=== PATIENT | male | born 1990 | race Caucasian/White ===

== ENCOUNTER 2016-07-04 13:25 | Emergency (ER) | payer OTHER ==
[2016-07-04] MEDS ORDERED: Albuterol 2.5 MG/3 ML NEB.SOL* (0.083%) INH ONE (13:45)
--- NOTE | 2016-07-04 14:05 | UC ---
Respiratory Complaint HPI - HPI Summary HPI Summary: patient went for a run this morning and had an episode where he felt like he was drowning. had to stop running. He states he has had many episodes like this since starting to wrok outside in February. He says there is no reasoning behind it. does have a prescription for albuterol but doesn't use it. when asked about hx of anxiety he got very defensive. denies any fever, sinus congestion, states he has a consistent cough that is not productive, His thought processes is very tangential. - History of Current Complaint Chief Complaint: UCRespiratory Stated Complaint: CONGESTION,COUGH Time Seen by Provider: 07/04/16 13:31 Hx Obtained From: Patient Onset/Duration: Gradual Onset, Still Present Timing: Intermittent Episodes Severity Initially: Moderate Severity Currently: Moderate Character: Cough: Nonproductive Aggravating Factors: Exertion Alleviating Factors: Spontaneous Resolution - Risk Factors Pulmonary Embolism Risk Factors: Negative Cardiac Risk Factors: Negative Pseudomonas Risk Factors: Negative Tuberculosis Risk Factors: Negative - Allergies/Home Medications Allergies/Adverse Reactions: Allergies Allergy/AdvReac Type Severity Reaction Status Date / Time No Known Allergies Allergy Verified 07/04/16 13:38 Home Medications: Home Medications NK [No Home Medications Reported] 07/04/16 [History Confirmed 07/04/16] PMH/Surg Hx/FS Hx/Imm Hx Previously Healthy: Yes Other History Of: Hepatitis C - Surgical History Surgical History: Yes Surgery Procedure, Year, and Place: TONSILLECTOMY - Family History Known Family History: Positive: Hypertension Family History: no family history of cardio-vascular or liver disorders - Social History Alcohol Use: Rare Substance Use Type: None Substance Use Comment - Amount & Last Used: FORMER IV DRUG USER Smoking Status (MU): Former Smoker Type: Smokeless Tobacco Amount Used/How Often: CHEWS Have You Smoked in the Last Year: No When Did the Patient Quit Smoking/Using Tobacco: 2 1/2 years ago Review of Systems Constitutional: Negative Skin: Negative Eyes: Negative ENT: Negative Respiratory: Shortness Of Breath, Cough Cardiovascular: Other - feels like his heart hurst sometimes, cant explain Gastrointestinal: Negative Genitourinary: Negative Motor: Negative Neurovascular: Negative Musculoskeletal: Negative Neurological: Negative Psychological: Negative All Other Systems Reviewed And Are Negative: Yes Physical Exam Triage Information Reviewed: Yes Appearance: Well-Appearing, Well-Nourished, Pain Distress, Other: - anxious Vital Signs: Initial Vital Signs Temp 98.9 F 07/04/16 13:32 Pulse 72 07/04/16 13:32 Resp 16 07/04/16 13:32 BP 138/90 07/04/16 13:32 Pulse Ox 100 07/04/16 13:32 Vital Signs Reviewed: Yes Eye Exam: Normal Eyes: Positive: Conjunctiva Clear ENT Exam: Normal ENT: Positive: Normal ENT inspection, Hearing grossly normal, Pharynx normal, TMs normal Dental Exam: Normal Neck exam: Normal Neck: Positive: Supple, Nontender, No Lymphadenopathy Respiratory Exam: Normal Respiratory: Positive: Chest non-tender, Lungs clear, Normal breath sounds - exam performed, by myself and Dr rhodes, neg for acute process, Cardiovascular Exam: Normal Cardiovascular: Positive: RRR, No Murmur, Pulses Normal Abdominal Exam: Normal Abdomen Description: Positive: Nontender, No Organomegaly, Soft Bowel Sounds: Positive: Present Musculoskeletal Exam: Normal Musculoskeletal: Positive: Strength Intact, ROM Intact, No Edema Neurological Exam: Normal Neurological: Positive: Alert, Muscle Tone Normal Psychological: Positive: Other: - patient is anxious, defensive and thought process is varied and all over the place Skin Exam: Normal UC Diagnostic Evaluation - Laboratory O2 Sat by Pulse Oximetry: 100 Respiratory Course/Dx - Course Course Of Treatment: hx obtained, exam performed, medication reviewed, peak flow meter testing was done and patient performed well. albuterol given as patient was complaining of SOB, chest xray obtained, albuterol inhaler prescribed. recommend follow up with power plant technician if patient continuew to have these symtpoms. - Differential Dx/Diagnosis Differential Diagnosis/HQI/PQRI: Asthma, Bronchitis, Influenza, Laryngitis Provider Diagnoses: dyspnea. SOB with exertion. anxiety Discharge - Discharge Plan Condition: Stable Disposition: HOME Patient Education Materials: Dyspnea (ED), Dyspnea Scale and Exercise (ED) Additional Instructions: Your lungs are clear, No sign of disease. I feel that your difficutly breathing may be caused by bronchospasm from being in the cold air during exertion. Continue with the Albuterol as needed, carry it with you when you work. I am giving you the neame of a power plant technician to follow up with if the symptoms persist.
--- NOTE | 2016-07-04 14:52 | RAD ---
INDICATION: Shortness of breath. COMPARISON: There are no prior studies available for comparison. TECHNIQUE: Dual-energy PA and lateral views of the chest were obtained. FINDINGS: The heart is within normal limits in size. Mediastinal and hilar contours appear within normal limits. The lungs are clear. No pleural effusion is present. IMPRESSION: NO EVIDENCE FOR ACTIVE CARDIOPULMONARY DISEASE.
[2016-07-04 15:15] VITALS: BP 139/87
== END 2016-07-04 15:15 | disposition home or self-care (01) ==
LOC: UCCORT 13:25
DX: R06.00 Dyspnea, unspecified (principal); F41.9 Anxiety disorder, unspecified; Z86.19 Personal history of other infectious and parasitic diseases; Z87.891 Personal history of nicotine dependence; Z87.898 Personal history of other specified conditions
CPT/HCPCS: 71020; 99213; G0463

== ENCOUNTER 2016-09-01 11:34 | Emergency (ER) | payer OTHER ==
[2016-09-01 12:00] VITALS: BP 129/81
--- NOTE | 2016-09-01 12:33 | UC ---
Epistaxis Nasal HPI - HPI Summary HPI Summary: lesion on right nostril x 1 year , it has been constant, it has been painful and uncomfortable , bleeding at times was seen by Dr. Calix and the pt. wasn't given any diagnosis for this condition . Dr. Calix prescribed mupirocin pt. is here to get a swab of the lesion , concern about MRSA - History of Current Complaint Chief Complaint: UCSkin Stated Complaint: NOSE COMPLAINT Time Seen by Provider: 09/01/16 12:15 Hx Obtained From: Patient Onset/Duration: Gradual Onset, Lasting Weeks - 1 year Timing: Constant Severity Initially: Moderate Severity Currently: Moderate Aggravating Factor(s): Nothing Alleviating Factor(s): Nothing Associated Signs And Symptoms: Negative: Bruising, Hematuria, Hematochezia, Sinus Pain, Nasal Discharge, Recent Abnormal Coagulation Studies, Foreign Body - Allergies/Home Medications Allergies/Adverse Reactions: Allergies Allergy/AdvReac Type Severity Reaction Status Date / Time No Known Allergies Allergy Verified 09/01/16 12:00 Home Medications: Home Medications Antidressant 1 dose PO DAILY 09/01/16 [History Confirmed 09/01/16] Mupirocin NASAL OINT (NF) [Bactroban NASAL OINT (NF)] 1 applic NASAL SEE INSTRUCTIONS 09/01/16 [History Confirmed 09/01/16] PMH/Surg Hx/FS Hx/Imm Hx Respiratory History Of: Denies: Asthma Other History Of: Hepatitis C - Surgical History Surgical History: Yes Surgery Procedure, Year, and Place: TONSILLECTOMY - Family History Known Family History: Positive: Hypertension Family History: no family history of cardio-vascular or liver disorders - Social History Alcohol Use: Rare Substance Use Type: None Substance Use Comment - Amount & Last Used: FORMER IV DRUG USER Smoking Status (MU): Former Smoker Type: Smokeless Tobacco Amount Used/How Often: CHEWS Have You Smoked in the Last Year: No When Did the Patient Quit Smoking/Using Tobacco: 2 1/2 years ago Review of Systems Constitutional: Negative Skin: Negative Eyes: Negative ENT: Negative Respiratory: Negative Cardiovascular: Negative Gastrointestinal: Negative Genitourinary: Negative Motor: Negative All Other Systems Reviewed And Are Negative: Yes Physical Exam Triage Information Reviewed: Yes Appearance: Well-Appearing, No Pain Distress, Well-Nourished Vital Signs: Initial Vital Signs Temp 98.6 F 09/01/16 11:52 Pulse 59 09/01/16 11:52 Resp 18 09/01/16 11:52 BP 129/81 09/01/16 11:52 Vital Signs Reviewed: Yes Eyes: Positive: Conjunctiva Clear ENT: Positive: Normal ENT inspection, Hearing grossly normal, Pharynx normal, Other: - right nostril : + erythema, could no visualize any lesions as far I could have seen using a nasal spaculum. Negative: Nasal congestion, Nasal drainage Neck: Positive: Supple, Nontender, No Lymphadenopathy Respiratory: Positive: Chest non-tender, Lungs clear, Normal breath sounds Cardiovascular: Positive: RRR, No Murmur, Pulses Normal UC Physical Exam Vital Signs On Initial Exam: Initial Vitals Temp Pulse Resp BP 98.6 F 59 18 129/81 09/01/16 11:52 09/01/16 11:52 09/01/16 11:52 09/01/16 11:52 Epistaxis Nasal Course/Dx - Differential Dx/Diagnosis Provider Diagnoses: nasal lesion Discharge - Discharge Plan Condition: Stable Disposition: HOME Referrals: No Primary Care Phys,NOPCP [Primary Care Provider] - Jerad Prado MD [Medical Doctor] - As Soon As Possible Additional Instructions: lesion of right nostril will have you follow up with ENT for eval and tx
== END 2016-09-01 12:50 | disposition home or self-care (01) ==
LOC: UCCORT 11:34
DX: J34.89 Other specified disorders of nose and nasal sinuses (principal); Z87.891 Personal history of nicotine dependence
CPT/HCPCS: 87070; 99211; G0463

== ENCOUNTER 2016-09-25 12:40 | Emergency (ER) | payer OTHER ==
[2016-09-25 12:50] VITALS: BP 127/70
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
== END 2016-09-25 13:13 | disposition home or self-care (01) ==
LOC: UCCORT 12:40
DX: R68.2 Dry mouth, unspecified (principal); R45.1 Restlessness and agitation; Z86.19 Personal history of other infectious and parasitic diseases; F17.220 Nicotine dependence, chewing tobacco, uncomplicated
CPT/HCPCS: 99211; G0463

== ENCOUNTER 2016-11-09 07:26 | Emergency (ER) | payer OTHER ==
--- NOTE | 2016-11-09 07:46 | UC ---
Ear Complaint HPI - History of Current Complaint Chief Complaint: UCEar Stated Complaint: BILATERAL EAR PAIN Time Seen by Provider: 11/09/16 07:40 Hx Obtained From: Patient Onset/Duration: Gradual Onset, Lasting Days - 3, Worse Since - today Severity Initially: Mild Severity Currently: Moderate - with ear being plugged. Pain Intensity: 0 Aggravating Factors: Nothing Alleviating Factors: Nothing Associated Signs/Symptoms: Positive: Hearing Loss - feels plugged Related History: Seasonal Allergies - Allergies/Home Medications Allergies/Adverse Reactions: Allergies Allergy/AdvReac Type Severity Reaction Status Date / Time No Known Allergies Allergy Verified 11/09/16 07:30 PMH/Surg Hx/FS Hx/Imm Hx Previously Healthy: Yes Other History Of: Hepatitis C - Surgical History Surgical History: Yes Surgery Procedure, Year, and Place: TONSILLECTOMY - Family History Known Family History: Positive: Cardiac Disease, Hypertension, Diabetes Family History: no family history of cardio-vascular or liver disorders - Social History Occupation: Unemployed Lives: With Family Alcohol Use: None Substance Use Type: None Substance Use Comment - Amount & Last Used: FORMER IV DRUG USER Smoking Status (MU): Former Smoker Type: Smokeless Tobacco Amount Used/How Often: CHEWS Have You Smoked in the Last Year: No When Did the Patient Quit Smoking/Using Tobacco: 2 1/2 years ago Review of Systems ENT: Ear Ache, Nasal Discharge Respiratory: Cough - with a tight feeling in the chest. All Other Systems Reviewed And Are Negative: Yes Physical Exam Triage Information Reviewed: Yes Appearance: Well-Appearing, No Pain Distress, Well-Nourished Vital Signs: Initial Vital Signs Temp 97.9 F 11/09/16 07:31 Pulse 62 11/09/16 07:31 Resp 16 11/09/16 07:31 BP 143/82 11/09/16 07:31 Pulse Ox 97 11/09/16 07:31 Vital Signs Reviewed: Yes Eyes: Positive: Conjunctiva Clear ENT: Positive: Pharynx normal, Nasal congestion - with allergic changes., Other : - TM's obscurred by impacted wax bilaterally Neck exam: Normal Respiratory: Positive: Wheezing - Mild expiratory wheeze Cardiovascular Exam: Normal Musculoskeletal Exam: Normal Neurological Exam: Normal Psychological Exam: Normal Skin Exam: Normal Ear Complaint Course/Dx - Differential Dx/Diagnosis Differential Diagnosis/HQI/PQRI: Cerumen Impaction, Otitis Externa, Otitis Media , URI Provider Diagnoses: Bilateral cerumen impaction. Allergic rhinitis. Mild persistent asthma. Discharge - Discharge Plan Condition: Stable Disposition: HOME Prescriptions: Montelukast Sodium TAB* [Singulair 10 MG TAB*] 10 mg PO BEDTIME #30 tab Mupirocin 2% OINT* [Bactroban 2 % Oint*] 1 applic INTRANASAL BID #1 tube Patient Education Materials: Cerumen Impaction (ED), Allergic Rhinitis (ED), Asthma (ED), Montelukast (By mouth)
[2016-11-09 08:15] VITALS: BP 143/82
== END 2016-11-09 08:23 | disposition home or self-care (01) ==
LOC: UCCORT 07:26
DX: H61.23 Impacted cerumen, bilateral (principal); J45.909 Unspecified asthma, uncomplicated; Z87.891 Personal history of nicotine dependence
CPT/HCPCS: 99213; G0463

== ENCOUNTER 2016-11-22 10:40 | Emergency (ER) | payer OTHER ==
[2016-11-22 11:17] VITALS: BP 135/71
--- NOTE | 2016-11-22 12:29 | UC ---
Respiratory Complaint HPI - HPI Summary HPI Summary: pt has had 1 month of cough with copious watery secretions that is interfering with with sleep and mild nasal congestion. pt also had a ST that has since resolved. pt was seen on here on 11/09/16 and dx with asthma and tx with singular with no benefit. - History of Current Complaint Chief Complaint: UCRespiratory Stated Complaint: LUNG COLD,COUGH Time Seen by Provider: 11/22/16 11:34 Hx Obtained From: Patient Onset/Duration: Gradual Onset, Lasting Weeks - 4, Still Present Severity Initially: Moderate Severity Currently: Moderate Pain Intensity: 0 Pain Scale Used: 0-10 Numeric Character: Sputum Description: - watery Aggravating Factors: Deep Breaths, Recumbent Position Alleviating Factors: Upright Position Associated Signs And Symptoms: Positive: Dyspnea, Nasal Congestion. Negative: Fever, Chills, Pleuritic Chest Pain, Wheezing, Hemoptysis, URI, Sinus Discomfort - Allergies/Home Medications Allergies/Adverse Reactions: Allergies Allergy/AdvReac Type Severity Reaction Status Date / Time No Known Allergies Allergy Verified 11/22/16 11:17 PMH/Surg Hx/FS Hx/Imm Hx Other History Of: Hepatitis C - Surgical History Surgical History: Yes Surgery Procedure, Year, and Place: TONSILLECTOMY - Family History Known Family History: Positive: Cardiac Disease, Hypertension, Diabetes Family History: no family history of cardio-vascular or liver disorders - Social History Occupation: Employed Full-time Alcohol Use: None Substance Use Type: None Substance Use Comment - Amount & Last Used: FORMER IV DRUG USER Smoking Status (MU): Former Smoker Type: Smokeless Tobacco Amount Used/How Often: CHEWS Have You Smoked in the Last Year: No When Did the Patient Quit Smoking/Using Tobacco: 2 1/2 years ago Review of Systems Constitutional: Negative Skin: Negative Eyes: Negative ENT: Nasal Discharge Respiratory: Shortness Of Breath, Cough Cardiovascular: Negative Gastrointestinal: Negative Musculoskeletal: Negative Neurological: Negative Psychological: Negative All Other Systems Reviewed And Are Negative: Yes Physical Exam Triage Information Reviewed: Yes Appearance: Well-Appearing, No Pain Distress, Well-Nourished Vital Signs: Initial Vital Signs Temp 98.6 F 11/22/16 11:07 Pulse 82 11/22/16 11:07 Resp 20 11/22/16 11:07 BP 135/71 11/22/16 11:07 Pulse Ox 99 11/22/16 11:07 Vital Signs Reviewed: Yes Eyes: Positive: Conjunctiva Clear. Negative: Discharge ENT: Positive: Hearing grossly normal, Pharynx normal, Nasal congestion, Nasal drainage, TMs normal. Negative: Tonsillar swelling, Tonsillar exudate, Trismus Neck: Positive: Supple, Nontender, No Lymphadenopathy Respiratory: Positive: No respiratory distress, No accessory muscle use, Wheezing - mild, few, scattered, Expiration - prolonged at bl bases Cardiovascular: Positive: RRR, No Murmur Musculoskeletal Exam: Normal Neurological: Positive: Alert, Muscle Tone Normal Psychological: Positive: Age Appropriate Behavior Skin Exam: Normal Diagnostic Evaluation - Laboratory O2 Sat by Pulse Oximetry: 99 Respiratory Course/Dx - Differential Dx/Diagnosis Differential Diagnosis/HQI/PQRI: Asthma, Bronchitis, Lower Resp Infection, Sinusitis, Other - allergies, post viral cough Provider Diagnoses: bronchitis Discharge - Discharge Plan Condition: Stable Disposition: HOME Prescriptions: Albuterol HFA INHALER* [Ventolin HFA Inhaler*] 2 puff INH Q4H PRN #1 mdi PRN Reason: Sob/Wheezing Azithromycin [Azithromycin 500 MG TAB] 500 mg PO DAILY #5 tab guaiFENesin ER TAB [Mucinex*] 600 mg PO BID PRN #1 box PRN Reason: Cough predniSONE TAB* [Deltasone TAB*] 40 mg PO DAILY #10 tab Patient Education Materials: Acute Bronchitis (ED) Referrals: No Primary Care Phys,NOPCP [Primary Care Provider] - Additional Instructions: INHALED BRONCHODILATORS: You have received a prescription for an inhaled bronchodilator -- a medication which stimulates the airways in the lung to dilate. This improves the flow of air in asthma, bronchitis, and emphysema. These medicines have some similarity to adrenaline, and can cause similar side effects: shakiness, racing heart, and a sense of nervousness. These side effects decrease with time. Contact your doctor if these side effects are severe. Do not over-use the medicine. Too-frequent use of the inhaler may make it ineffective. Call your doctor if the inhaler is not controlling your symptoms at the prescribed doses. AZITHROMYCIN: Azithromycin (Zithromax) is a broad spectrum antibiotic in the same class as erythromycin. It can treat a variety of bacterial infections, but is most frequently used for respiratory infections. Azithromycin is extremely long-lasting. It accumulates in body tissues and continues to kill bacteria for many days. In order to improve absorption, Azithromycin should be taken at least one hour before or two hours after a meal. It does not have the same strong tendency to upset the stomach as erythromycin and is usually very well tolerated. Patients who have had a rash or other true allergic reactions to erythromycin should not take this medication. Call if you develop gastrointestinal distress, severe diarrhea, rash, hives, itching, or shortness of breath. ANYTIME YOU TAKE AN ANTIBIOTIC, IT IS IMPORTANT TO REPLENISH THE BODY'S SUPPLY OF "GOOD BACTERIA." YOU CAN GET GOOD BACTERIA FROM HIGH QUALITY CULTURED FOODS SUCH LOCAL YOGURT, SOUR KRAUT, KUMAR CLARISA, NATURALLY FERMENTED PICKLES AND PROBIOTIC DRINKS. YOU CAN ALSO GET GOOD BACTERIA FROM A PROBIOTIC SUPPLEMENT. EXPECTORANT MEDICATION: WE SENT IN A SCRIPT FOR MUCINEX SO THAT IT IS EASIER FOR YOU TO PICK THE RIGHT MED AT THE PHARMACY. HOWEVER, YOU CAN ALSO GO TO THE [employer] [facility] AND BUY PLAIN GUAIFENESIN WITHOU BINDERS OR FILLERS. An expectorant medicine has been prescribed. This type of drug makes mucous thinner, helping the sinuses, nose, and bronchial tubes to remain free of pus and mucous. Expectorants make a cough less severe and more comfortable, and help infected sinuses drain. In general, antihistamines defeat the purpose of the expectorant by making mucous thicker. They should be avoided unless specifically recommended by your physician. CORTICOSTEROID MEDICATION: You have been given a medicine of the cortisone class. This medication is used to control inflammation or allergy. It is usually only given for a short period of time, until the acute process subsides. There are usually no side effects from short-term use of cortisone-like medications. Some persons feel an increased sense of well-being and are not sleepy at bedtime. Long-term use of cortisone medications is best avoided, unless required for a severe condition. If your condition does not remit, or relapses after the course of corticosteroid medication, you should consult your physician. Contact the physician if you develop lightheadedness, black or tarry stools , swelling of the legs, or significant rapid change in weight. FOLLOW-UP CARE: You should establish with a private physician for follow-up care in 1-2 weeks. If you are unable to get a timely appointment, or if you are worsening, call us or return for re-evaluation. An additional resource available to assist in finding the appropriate physician for your health care needs is the [facility] Referral Center. You may contact them by calling [phone].
== END 2016-11-22 12:19 | disposition home or self-care (01) ==
LOC: UCCORT 10:40
DX: J40 Bronchitis, not specified as acute or chronic (principal); Z87.891 Personal history of nicotine dependence
CPT/HCPCS: 99212; G0463

== ENCOUNTER 2017-02-11 16:42 | Emergency (ER) | payer OTHER ==
[2017-02-11 17:16] VITALS: BP 133/77
--- NOTE | 2017-02-11 18:11 | UC ---
General HPI - HPI Summary HPI Summary: 1) NO PRIMARY CARE PROVIDER. HAS HAD TWO YEARS OF FACIAL RASH, HAS TRIED VARIOUS SORTS OF CREAMS. NO FAMILY HISTORY OF LUPUS. + FAMILY HISTORY OF ECZEMA. WOULD LIKE TESTING FOR LUPUS OR REFERRAL FOR PCP. 2) NO PRIMARY CARE PROVIDER. WOULD LIKE REFILL OF ALBUTEROL INHALER. - History of Current Complaint Chief Complaint: UCRas Stated Complaint: RASH ON FACE Time Seen by Provider: 02/11/17 17:20 Hx Obtained From: Patient Onset/Duration: Gradual Onset, Lasting Weeks - 2 YEARS Onset Severity: Mild Current Severity: Mild Pain Intensity: 0 Associated Signs & Symptoms: Positive: Immunocompromised - HEP C, Wheezing. Negative: Back Pain, Confusion, Cough, Dizziness, Fever, Headache, Syncope, SOB , Trauma, Weakness - Allergy/Home Medications Allergies/Adverse Reactions: Allergies Allergy/AdvReac Type Severity Reaction Status Date / Time No Known Allergies Allergy Verified 02/11/17 17:08 PMH/Surg Hx/FS Hx/Imm Hx Previously Healthy: Yes Other History Of: Hepatitis C - Surgical History Surgical History: Yes Surgery Procedure, Year, and Place: TONSILLECTOMY - Family History Known Family History: Positive: Cardiac Disease, Hypertension, Diabetes Family History: no family history of cardio-vascular or liver disorders - Social History Occupation: Unemployed Lives: With Family Alcohol Use: None Substance Use Type: None Substance Use Comment - Amount & Last Used: FORMER IV DRUG USER Smoking Status (MU): Former Smoker Type: Smokeless Tobacco Amount Used/How Often: CHEWS Have You Smoked in the Last Year: No When Did the Patient Quit Smoking/Using Tobacco: 2 1/2 years ago Review of Systems Constitutional: Negative Skin: Rash - BILATERAL SUPERIOR EYELIDS EYEBROWS SCALING RASH. Eyes: Negative ENT: Negative Respiratory: Negative Cardiovascular: Negative Gastrointestinal: Negative Genitourinary: Negative Motor: Negative Neurovascular: Negative Musculoskeletal: Negative Neurological: Negative Psychological: Negative Is Patient Immunocompromised?: No All Other Systems Reviewed And Are Negative: Yes Physical Exam Triage Information Reviewed: Yes Appearance: Well-Appearing, No Pain Distress, Well-Nourished Vital Signs: Initial Vital Signs Temp 98.5 F 02/11/17 17:10 Pulse 64 02/11/17 17:10 Resp 20 02/11/17 17:10 BP 133/77 02/11/17 17:10 Pulse Ox 97 02/11/17 17:10 Vital Signs Reviewed: Yes Eye Exam: Normal ENT Exam: Normal ENT: Positive: Normal ENT inspection, Hearing grossly normal, TMs normal Dental Exam: Normal Neck exam: Normal Neck: Positive: Supple, Nontender, No Lymphadenopathy Respiratory Exam: Normal Respiratory: Positive: Chest non-tender, Lungs clear, Normal breath sounds, No respiratory distress Cardiovascular Exam: Normal Cardiovascular: Positive: RRR, No Murmur, Pulses Normal Musculoskeletal Exam: Normal Musculoskeletal: Positive: Strength Intact, ROM Intact Neurological Exam: Normal Psychological Exam: Normal Skin: Positive: rashes - BILATERAL SUPERIOR EYELIDS, EYEBROWS SCALING ERRYTHMATOUS RASH Course/Dx - Course Course Of Treatment: PATIENT GIVEN PRIMARY CARE REFERRAL, AND REFERRAL FOR DERMATOLOGY. - Differential Dx - Multi-Symptom Differential Diagnoses: Cardiac Ischemia, Metabolic Abnormality, Urinary Tract Infection, Other - ECZEMA, LUPUS Provider Diagnoses: DERMATITIS BILATERAL EYEBROWS, SUPERIOR EYELIDS; ASTHMA Discharge - Discharge Plan Condition: Stable Disposition: HOME Prescriptions: Albuterol HFA INHALER* [Ventolin HFA Inhaler*] 1 - 2 puff INH Q6H PRN #1 mdi PRN Reason: Wheezing Hydrocortisone 1% CREAM* [Hytone Cream 1%*] 1 applic TOPICAL TID #1 tube Patient Education Materials: Asthma (ED), Dermatitis (ED) Referrals: [facility] [place] [facility] REFERRAL [Outside] No Primary Care Phys,NOPCP [Primary Care Provider] - Jm MODI,Jerad Ceballos [Medical Doctor] - Additional Instructions: PLEASE ESTABLISH A PRIMARY CARE PHYSICIAN TO ADDRESS YOUR CHRONIC & SPECIAL EDUCATION BUS DR[employer] CONCERNS. REFERRAL SERVICE NUMBER HAS BEEN PROVIDED.
== END 2017-02-11 17:57 | disposition home or self-care (01) ==
LOC: UCCORT 16:42
DX: L30.9 Dermatitis, unspecified (principal); J45.909 Unspecified asthma, uncomplicated; B19.20 Unspecified viral hepatitis C without hepatic coma; Z87.891 Personal history of nicotine dependence
CPT/HCPCS: 99212; G0463

== ENCOUNTER 2017-10-05 12:15 | Emergency (ER) | payer OTHER ==
[2017-10-05 12:36] VITALS: BP 125/79
--- NOTE | 2017-10-05 12:50 | ED ---
Neck Pain - HPI Summary HPI Summary: 27 yr old male with posterior neck pain. Onset 3 yrs ago when lifting something heavy he felt a snap and pull of muscle in the lower posterior neck. He states that since then he has had intermittent swelling in the back of his neck. He denies fever, chills, headache. No other complaints. - History of Current Complaint Chief Complaint: UCBackPain Stated Complaint: NECK COMPLAINT Time Seen by Provider: 10/05/17 12:38 Pain Intensity: 5 - Allergies/Home Medications Allergies/Adverse Reactions: Allergies Allergy/AdvReac Type Severity Reaction Status Date / Time No Known Allergies Allergy Verified 10/05/17 12:32 Home Medications: Home Medications Acetaminophen TAB* [Tylenol TAB*] 650 mg PO Q4H PRN 10/05/17 [History Confirmed 10/05/17] PMH/Surg Hx/FS Hx/Imm Hx Respiratory History: Reports: Hx Asthma - Surgical History Surgery Procedure, Year, and Place: TONSILLECTOMY Infectious Disease History: Yes Infectious Disease History: Reports: Hx Hepatitis - C Denies: Traveled Outside the [place] in Last 30 Days - Family History Known Family History: Positive: Cardiac Disease, Hypertension, Diabetes Family History: no family history of cardio-vascular or liver disorders - Social History Alcohol Use: None Substance Use Type: Reports: None Substance Use Comment - Amount & Last Used: FORMER IV DRUG USER Smoking Status (MU): Former Smoker Type: Smokeless Tobacco Amount Used/How Often: CHEWS Have You Smoked in the Last Year: No Review of Systems Constitutional: Negative Positive: Other - posterior neck pain All Other Systems Reviewed And Are Negative: Yes Physical Exam Triage Information Reviewed: Yes Vital Signs On Initial Exam: Initial Vitals Temp Pulse Resp BP Pulse Ox 98.6 F 64 14 125/79 100 10/05/17 12:28 10/05/17 12:28 10/05/17 12:28 10/05/17 12:28 10/05/17 12:28 Vital Signs Reviewed: Yes Appearance: Positive: Well-Appearing, No Pain Distress Skin: Positive: Warm, Skin Color Reflects Adequate Perfusion Head/Face: Positive: Normal Head/Face Inspection Eyes: Positive: Normal, EOMI ENT: Positive: Normal ENT inspection Neck: Positive: Supple, Other: - mild STS posterior neck without any renu tenderness Respiratory/Lung Sounds: Positive: Clear to Auscultation, Breath Sounds Present Cardiovascular: Positive: RRR. Negative: Murmur Abdomen Description: Positive: Nontender Musculoskeletal: Positive: Strength/ROM Intact Neurological: Positive: Sensory/Motor Intact, Alert, Oriented to Person Place, Time, CN Intact II-III Psychiatric: Positive: Normal - [place] Coma Scale Best Eye Response: 4 - Spontaneous Best Motor Response: 6 - Obeys Commands Best Verbal Response: 5 - Oriented Coma Scale Total: 15 Diagnostics - Vital Signs Vital Signs Temp Pulse Resp BP Pulse Ox 10/05/17 12:28 98.6 F 64 14 125/79 100 - Laboratory Lab Statement: Any lab studies that have been ordered have been reviewed, and results considered in the medical decision making process. Neck Course/Dx - Course Course Of Treatment: 27 yr old with benign exam and negative CT scan. No cellulitis or ST mass palpable. Refer to Ortho for follow up. - Diagnoses Provider Diagnoses: Neck pain Discharge - Sign-Out/Discharge Documenting (check all that apply): Discharge/Admit/Transfer - Discharge Plan Condition: Good Disposition: HOME Patient Education Materials: Neck Pain (ED) Referrals: Dayne Belcher MD [Medical Doctor] - 2 Days No Primary Care Phys,NOPCP [Primary Care Provider] - - Billing Disposition and Condition Condition: GOOD Disposition: Home
--- NOTE | 2017-10-05 13:42 | RAD ---
HISTORY: pain posterior neck COMPARISONS: None TECHNIQUE: Multiple contiguous axial CT scans were obtained of the cervical spine without intravenous contrast, with coronal and sagittal multiplanar reformations. FINDINGS: BRAIN: The visualized brain is unremarkable CENTRAL CANAL: Evaluation of the central canal is limited on CT technique, however there is no obvious canalicular mass or epidural hemorrhage. ALIGNMENT: There is straightening of the normal cervical lordosis. VERTEBRAL BODIES: The odontoid process is intact. The atlantoaxial intervals are symmetric. The vertebral bodies are normal in attenuation, without fracture. JOINTS: There is no subluxation or dislocation MUSCULATURE: Unremarkable INTERVERTEBRAL DISCS: There is mild diffuse loss of intervertebral disc height. AXIAL IMAGES: On axial images, there is no osseous neural foraminal narrowing or central canal stenosis. SOFT TISSUES: The visualized soft tissues of the neck are unremarkable. The prevertebral fat stripe is preserved. OTHER: None. IMPRESSION: STRAIGHTENING OF THE CERVICAL LORDOSIS, NO ACUTE OSSEOUS INJURY TO THE CERVICAL SPINE
== END 2017-10-05 13:52 | disposition home or self-care (01) ==
LOC: UCCORT 12:15
DX: M54.2 Cervicalgia (principal); Z87.891 Personal history of nicotine dependence
CPT/HCPCS: 72125; 99211; G0463

== ENCOUNTER 2018-11-04 07:07 | Emergency (ER) | payer OTHER ==
[2018-11-04 07:26] VITALS: BP 135/72
[2018-11-04] MEDS ORDERED: Tetan/Diph/Pertus SYR(Tdap)* 0.5 ML SYR(BOOSTRIX) use SYR IM ONE (07:37)
--- NOTE | 2018-11-04 07:39 | UC ---
Lower Extremity/Ankle HPI - HPI Summary HPI Summary: 28-year-old male comes in with a chief complaint of a puncture wound to the right foot. 2 days ago the patient stepped on a nail went through his sandals and into his right foot and this between the first and second MTP joints. No drainage no redness it is tender to palpation. No fevers no chills feels well. Reports his last tetanus was in 2011. He is interested in getting a tetanus shot today. - History of Current Complaint Chief Complaint: UCLowerExtremity Stated Complaint: RT FOOT COMPLAINT Time Seen by Provider: 11/04/18 07:32 Pain Intensity: 1 - Allergies/Home Medications Allergies/Adverse Reactions: Allergies Allergy/AdvReac Type Severity Reaction Status Date / Time No Known Allergies Allergy Verified 11/04/18 07:20 PMH/Surg Hx/FS Hx/Imm Hx Previously Healthy: Yes Other History Of: Hepatitis C - Surgical History Surgical History: Yes Surgery Procedure, Year, and Place: TONSILLECTOMY - Family History Known Family History: Positive: Cardiac Disease, Hypertension, Diabetes Family History: no family history of cardio-vascular or liver disorders - Social History Alcohol Use: None Substance Use Type: None Substance Use Comment - Amount & Last Used: FORMER IV DRUG USER Smoking Status (MU): Former Smoker Type: Smokeless Tobacco Amount Used/How Often: CHEWS Have You Smoked in the Last Year: No When Did the Patient Quit Smoking/Using Tobacco: 2 1/2 years ago Review of Systems All Other Systems Reviewed And Are Negative: Yes Constitutional: Positive: Negative Skin: Positive: Other - SEE HPI Eyes: Positive: Negative ENT: Positive: Negative Respiratory: Positive: Negative Cardiovascular: Positive: Negative Gastrointestinal: Positive: Negative Motor: Positive: Negative Neurovascular: Positive: Negative Musculoskeletal: Positive: Other: - CHRONIC NECK PAIN Neurological: Positive: Negative Psychological: Positive: Negative Is Patient Immunocompromised?: No Physical Exam Triage Information Reviewed: Yes Appearance: Well-Appearing, No Pain Distress, Well-Nourished Vital Signs: Initial Vital Signs Temp 96.4 F 11/04/18 07:20 Pulse 69 11/04/18 07:20 Resp 14 11/04/18 07:20 BP 135/72 11/04/18 07:20 Pulse Ox 97 11/04/18 07:20 Vital Signs Reviewed: Yes Eye Exam: Normal Eyes: Positive: Conjunctiva Clear Neck: Positive: Supple Respiratory: Positive: No respiratory distress Musculoskeletal Exam: Normal Musculoskeletal: Positive: Strength Intact, ROM Intact Neurological Exam: Normal Neurological: Positive: Alert, Muscle Tone Normal Psychological Exam: Normal Psychological: Positive: Age Appropriate Behavior Skin: Positive: Other - On the plantar surface of the distal right foot between the first and second MTP joints there is a puncture wound. There is no erythema it's mildly tender to palpation. There is some clear drainage. No pus drainage. Normal capillary refill no sensation deficit full range of motion. Lower Extremity Course/Dx - Course Course Of Treatment: At this time the foot does not appear infected. Patient was given his T Dap here today in clinic. And have him on Keflex 500 mg by mouth 3 times a day for 7 days prophylactically. I let him know that if there is any signs of infection he got worse he needs to get reevaluated right away. - Differential Dx/Diagnosis Provider Diagnosis: Puncture wound of right foot Discharge - Sign-Out/Discharge Documenting (check all that apply): Patient Departure All imaging exams completed and their final reports reviewed: No Studies - Discharge Plan Condition: Stable Disposition: HOME Prescriptions: Cephalexin CAP* [Keflex CAP*] 500 mg PO TID #21 cap Patient Education Materials: Puncture Wound (ED) Referrals: [facility] [place] [facility] [place] [Outside] Additional Instructions: FOLLOW UP WITH YOUR DOCTOR IF NOT COMPLETELY IMPROVED. GET REEVALUATED SOONER IF WORSE; PAIN, FEVER, SIGNS OF INFECTION OR ANY QUESTIONS OR CONCERNS. - Billing Disposition and Condition Condition: STABLE Disposition: Home
== END 2018-11-04 07:47 | disposition home or self-care (01) ==
LOC: UCCORT 07:07
DX: S91.331A Puncture wound without foreign body, right foot, initial encounter (principal); W22.8XXA Striking against or struck by other objects, initial encounter; Y92.9 Unspecified place or not applicable; Z87.891 Personal history of nicotine dependence; Z23 Encounter for immunization
CPT/HCPCS: 90715; 96372; 99212; G0463

== ENCOUNTER 2019-07-05 18:34 | Emergency (ER) | payer OTHER ==
[2019-07-05 18:58] VITALS: BP 123/75
--- NOTE | 2019-07-05 20:04 | UC ---
Respiratory Complaint HPI - HPI Summary HPI Summary: 29 yo male requests albuterol prescription has been tight out of inhaler looking for PCP no f/c no dyspnea or CP - History of Current Complaint Chief Complaint: UCRespiratory Stated Complaint: STOMACH PAIN Time Seen by Provider: 07/05/19 19:50 Hx Obtained From: Patient Timing: Intermittent Episodes Severity Currently: None Pain Intensity: 0 Pain Scale Used: 0-10 Numeric Character: Cough: Nonproductive - at times Aggravating Factors: Allergens, Exertion Alleviating Factors: Bronchodilator - out Associated Signs And Symptoms: Positive: Wheezing - Allergies/Home Medications Allergies/Adverse Reactions: Allergies Allergy/AdvReac Type Severity Reaction Status Date / Time No Known Allergies Allergy Verified 07/05/19 18:53 Home Medications: Home Medications Albuterol HFA INHALER* [Ventolin HFA Inhaler*] 2 puff INH QID #1 mdi 07/05/19 [ Rx] predniSONE 20 mg TAB [Deltasone 20 MG TAB*] 40 mg PO DAILY #8 tab 07/05/19 [Rx] PMH/Surg Hx/FS Hx/Imm Hx Previously Healthy: Yes Respiratory History: Asthma GI/ History: Other Other GI/ History: hep c Other History Of: Hepatitis C - Surgical History Surgical History: Yes Surgery Procedure, Year, and Place: TONSILLECTOMY - Family History Known Family History: Positive: Cardiac Disease, Hypertension, Diabetes Family History: no family history of liver disorders - Social History Alcohol Use: Occasionally Substance Use Type: None Substance Use Comment - Amount & Last Used: FORMER IV DRUG USER Smoking Status (MU): Former Smoker Type: Smokeless Tobacco Amount Used/How Often: CHEWS Have You Smoked in the Last Year: No When Did the Patient Quit Smoking/Using Tobacco: 2 1/2 years ago Review of Systems All Other Systems Reviewed And Are Negative: Yes Constitutional: Positive: Negative Skin: Positive: Negative Eyes: Positive: Negative ENT: Positive: Negative Respiratory: Positive: Cough - intermittent Cardiovascular: Positive: Negative Gastrointestinal: Positive: Negative Genitourinary: Positive: Negative Motor: Positive: Negative Neurovascular: Positive: Negative Musculoskeletal: Positive: Negative Neurological/Mental Status: Positive: Negative Psychological: Positive: Negative Physical Exam Triage Information Reviewed: Yes Appearance: Well-Appearing, No Pain Distress, Well-Nourished Vital Signs: Initial Vital Signs Temp 97.6 F 07/05/19 18:53 Pulse 80 07/05/19 18:53 Resp 16 07/05/19 18:53 BP 123/75 07/05/19 18:53 Pulse Ox 99 07/05/19 18:53 Vital Signs Reviewed: Yes Eyes: Positive: Conjunctiva Clear ENT: Positive: Hearing grossly normal. Negative: Nasal congestion, Nasal drainage, Trismus, Muffled voice, Hoarse voice Dental Exam: Normal Neck: Positive: Supple, Nontender, No Lymphadenopathy Respiratory: Positive: Lungs clear, Normal breath sounds, No respiratory distress, No accessory muscle use, Respiratory distress Cardiovascular: Positive: RRR, No Murmur Musculoskeletal: Positive: ROM Intact, No Edema Neurological: Positive: Alert Psychological Exam: Normal Skin Exam: Normal Respiratory Course/Dx - Differential Dx/Diagnosis Provider Diagnosis: History of wheezing Discharge ED - Sign-Out/Discharge Documenting (check all that apply): Patient Departure All imaging exams completed and their final reports reviewed: No Studies - Discharge Plan Condition: Stable Disposition: HOME Prescriptions: Albuterol HFA INHALER* [Ventolin HFA Inhaler*] 2 puff INH QID #1 mdi predniSONE 20 mg TAB [Deltasone 20 MG TAB*] 40 mg PO DAILY #8 tab Patient Education Materials: Bronchospasm (ED) Referrals: [facility] [place] [place] [facility] REFERRAL [Outside] - As Soon As Possible - Billing Disposition and Condition Condition: STABLE Disposition: Home
== END 2019-07-05 20:09 | disposition home or self-care (01) ==
LOC: UCCORT 18:34
DX: Z76.0 Encounter for issue of repeat prescription (principal); J45.909 Unspecified asthma, uncomplicated; R05 Cough; B19.20 Unspecified viral hepatitis C without hepatic coma; Z79.52 Long term (current) use of systemic steroids; Z87.891 Personal history of nicotine dependence
CPT/HCPCS: 99212; G0463